=== PATIENT | female | born 1995 | race Two or more races ===

== ENCOUNTER 2019-02-15 17:41 | Emergency (ER) | payer MEDICAID ==
[~2019-02-15] VITALS: Ht 149.9 cm; Wt 60.0 kg
[2019-02-15 17:54] VITALS: BP 132/78
== END 2019-02-15 20:00 | disposition left against medical advice (07) ==
LOC: ER 17:53
DX: Z53.21 Procedure and treatment not carried out due to patient leaving prior to being seen by health care provider (principal); R11.2 Nausea with vomiting, unspecified; R45.0 Nervousness
CPT/HCPCS: 93005